=== PATIENT | male | born 1945 | race Caucasian/White ===

== ENCOUNTER → 2016-09-24 | Outpatient (CLI) | payer MEDICARE, BC, OTHER ==
[2016-09-24 08:02] LABS: BASO # 0.1 K/mm3 (0.0-0.2); BASO % 0.6 % (0.0-1.0); EOS # 0.2 K/mm3 (0.0-0.50); EOS % 2.8 % (0.0-3.0); LYMPH # 1.5 K/mm3 (1.5-4.5); LYMPH % 16.7 % (24.0-44.0); MEAN CORPUSCULAR HEMOGLOBIN 31.5 pg (27.0-33.0); MEAN CORPUSCULAR HGB CONC 33.7 g/dl (32.0-36.5); MEAN CORPUSCULAR VOLUME 93.4 fl (80.0-96.0); MONO # 0.7 K/mm3 (0.0-0.8); MONO % 7.8 % (0.0-5.0); NEUTROPHILS # 6.1 K/mm3 (1.8-7.7); NEUTROPHILS % 70.2 % (36.0-66.0); RED CELL DISTRIBUTION WIDTH 13.3 % (11.5-14.5); WHITE BLOOD COUNT 8.7 K/mm3 (4.0-10.0)
[2016-09-24 08:32] LABS: ALBUMIN 3.6 GM/DL (3.2-5.2); ALBUMIN/GLOBULIN RATIO 1.13 (1.00-1.93); ALKALINE PHOSPHATASE 104 U/L (45-117); ALT/SGPT 18 U/L (12-78); ANION GAP 7 MEQ/L (8-16); AST/SGOT 17 U/L (15-37); BILIRUBIN,TOTAL 0.5 MG/DL (0.2-1.0); BLOOD UREA NITROGEN 15 MG/DL (7-18); CALCIUM LEVEL 8.7 MG/DL (8.8-10.2); CARBON DIOXIDE LEVEL 30 MEQ/L (21-32); CHLORIDE LEVEL 103 MEQ/L (98-107); CHOLESTEROL LEVEL 129 MG/DL (<200); CREATININE FOR GFR 1.02 MG/DL (0.70-1.30); GLOMERULAR FILTRATION RATE > 60.0 (>42); GLUCOSE, FASTING 103 MG/DL (83-110); SODIUM LEVEL 140 MEQ/L (136-145); TOTAL PROTEIN 6.8 GM/DL (6.4-8.2); TRIGLYCERIDES LEVEL 71 MG/DL (<150)
== END ==
LOC: M LAB 07:30
PROVIDERS: ATTEND Internal Medicine Interventional Cardiology
DX: I10 Essential (primary) hypertension (principal)

== ENCOUNTER 2017-02-26 18:04 | Emergency (ER) | payer MEDICARE, BC, OTHER ==
[~2017-02-26] VITALS: Ht 185.4 cm; Wt 88.6 kg
[2017-02-26] MEDS ORDERED: LOSARTAN/HCT (18:16)
[2017-02-26] MEDS ORDERED: MULT1TAB10 PO (18:16)
[2017-02-26] MEDS ORDERED: LANS30CA (18:16)
[2017-02-26] MEDS ORDERED: NIFE60TA6 (18:16)
[2017-02-26] MEDS ORDERED: ATOR1TAB21 (18:16)
[2017-02-26] MEDS ORDERED: NITR0.4D TD (18:18)
[2017-02-26] MEDS ORDERED: ZOLP10TA2 PO (18:18)
[2017-02-26] MEDS ORDERED: CO Q10CA PO (18:18)
[2017-02-26] MEDS ORDERED: ASPI81TA21 PO (18:18)
[2017-02-26] MEDS ORDERED: NS 1,000 ML IV SCH (18:37)
[2017-02-26] MEDS ORDERED: PANTOPRAZOLE 40MG INJ (PROTONIX) (C9113) IV ONE (18:45)
[2017-02-26] MEDS ORDERED: ONDANSETRON 4MG/2ML VIAL (J2405) IV ONE (18:45)
[2017-02-26] MEDS ORDERED: GI COCKTAIL 50ML BTL(HYOSCYAMINE/MAALOX/LIDOCAINE VISCOUS)(1:3:1) PO ONE (18:45)
[2017-02-26 18:55] LABS: BASO % 0.4 % (0.0-1.0); EOS # 0.1 10^3/uL (0.0-0.50); EOS % 0.8 % (0.0-3.0); IMMATURE GRANULOCYTE % 0.4 % (0-0); LYMPH # 0.9 10^3/uL (1.5-4.5); LYMPH % 8.2 % (24.0-44.0); MEAN CORPUSCULAR HEMOGLOBIN 30.6 pg (27.0-33.0); MEAN CORPUSCULAR HGB CONC 33.4 g/dl (32.0-36.5); MEAN CORPUSCULAR VOLUME 91.6 fl (80.0-96.0); MONO # 0.9 10^3/uL (0.0-0.8); MONO % 8.2 % (0.0-5.0); NEUTROPHILS # 9.1 10^3/uL (1.8-7.7); PLATELET COUNT, AUTOMATED 297 10^3/uL (150-450); RED CELL DISTRIBUTION WIDTH 13.2 % (11.5-14.5)
[2017-02-26 19:25] LABS: ALBUMIN 3.5 GM/DL (3.2-5.2); ALKALINE PHOSPHATASE 97 U/L (45-117); ALT/SGPT 17 U/L (12-78); AMYLASE 71 U/L (25-115); ANION GAP 5 MEQ/L (8-16); AST/SGOT 18 U/L (7-37); BILIRUBIN,DIRECT < 0.1 MG/DL (0.0-0.2); BILIRUBIN,TOTAL 0.4 MG/DL (0.2-1.0); BLOOD UREA NITROGEN 15 MG/DL (7-18); CALCIUM LEVEL 8.8 MG/DL (8.8-10.2); CARBON DIOXIDE LEVEL 30 MEQ/L (21-32); CHLORIDE LEVEL 104 MEQ/L (98-107); CREATININE FOR GFR 0.97 MG/DL (0.70-1.30); GLOMERULAR FILTRATION RATE > 60.0 (>42); GLUCOSE, FASTING 93 MG/DL (83-110); POTASSIUM SERUM 3.9 MEQ/L (3.5-5.1); SODIUM LEVEL 139 MEQ/L (136-145); TOTAL PROTEIN 7.4 GM/DL (6.4-8.2)
[2017-02-26 19:43] VITALS: BP 120/67
[2017-02-26] MEDS ORDERED: PROT1TAB2 PO (19:46)
--- NOTE | 2017-02-26 20:36 | REP ---
ACUTE ABDOMINAL SERIES: 02/26/2017. Comparison: Chest x-ray 02/13/2012. Clinical history: Abdominal pain. Findings: PA chest: Sternotomy wires and clips in the mediastinum, unchanged. No cardiomegaly or vascular redistribution. No effusion or acute infiltrate. Pulmonary arteries are prominent centrally suggesting some pulmonary artery hypertension. No dense consolidation or parenchymal mass. No free air under the diaphragm. Aorta and airway intact. Flat and upright abdomen: Gas pattern is nonspecific with small amounts of stool and gas scattered in the colon. No dilated loops, air-fluid levels, masses or free air. No abnormal calcification. Bones grossly intact with minor degenerative changes lower lumbar facets and discs. Impression: 1. Nonspecific gas pattern without obstruction, mass or free air. No air-fluid levels, abnormal calcifications, masses or bony findings. 2. PA chest without acute finding. There is some underlying fibrosis, COPD and pulmonary artery hypertension in a patient with a prior sternotomy. Signed by Emmanuel Devine MD 02/26/2017 08:49 P
--- NOTE | 2017-02-28 12:17 | ECGEPIP ---
Stationary ECG Study 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
== END 2017-02-26 19:59 | disposition home or self-care (01) ==
LOC: M ED 18:04
DX: K29.70 Gastritis, unspecified, without bleeding (principal); I10 Essential (primary) hypertension; E78.5 Hyperlipidemia, unspecified; K21.9 Gastro-esophageal reflux disease without esophagitis; Z95.1 Presence of aortocoronary bypass graft; Z79.899 Other long term (current) drug therapy; Z79.82 Long term (current) use of aspirin; Z88.0 Allergy status to penicillin; Z88.1 Allergy status to other antibiotic agents; Z88.8 Allergy status to other drugs, medicaments and biological substances; Z87.891 Personal history of nicotine dependence
CPT/HCPCS: 74022; 80048; 80076; 82150; 82550; 82553; 83690; 84484; 85025; 93005; 93041; 96374; 96375; 99284; C9113; J2405

== ENCOUNTER 2017-03-14 09:22 | Emergency (ER) | payer MEDICARE, BC, OTHER ==
[~2017-03-14] VITALS: Ht 185.4 cm; Wt 88.6 kg
[~2017-03-14 09:22] MED LIST: ASPI81TA21 PO; ATOR1TAB21; CO Q10CA PO; LANS30CA; LOSARTAN/HCT; MULT1TAB10 PO; NIFE60TA6; NITR0.4D TD; PROT1TAB2 PO; ZOLP10TA2 PO
[2017-03-14] MEDS ORDERED: PROT1TAB2 PO (09:36)
[2017-03-14] MEDS ORDERED: COLA100C5 PO (09:36)
[2017-03-14] MEDS ORDERED: SULF1TAB72 PO (09:36)
[2017-03-14] MEDS ORDERED: NS 500 ML IV ONE (10:00)
[2017-03-14 10:06] LABS: BASO % 0.5 % (0.0-1.0); EOS # 0.4 10^3/uL (0.0-0.50); EOS % 4.6 % (0.0-3.0); IMMATURE GRANULOCYTE % 0.4 % (0-0); LYMPH # 1.3 10^3/uL (1.5-4.5); LYMPH % 14.7 % (24.0-44.0); MEAN CORPUSCULAR HEMOGLOBIN 30.8 pg (27.0-33.0); MEAN CORPUSCULAR HGB CONC 33.2 g/dl (32.0-36.5); MEAN CORPUSCULAR VOLUME 92.7 fl (80.0-96.0); MONO # 1.1 10^3/uL (0.0-0.8); MONO % 12.6 % (0.0-5.0); NEUTROPHILS # 5.8 10^3/uL (1.8-7.7); NEUTROPHILS % 67.2 % (36.0-66.0); PLATELET COUNT, AUTOMATED 362 10^3/uL (150-450); RED CELL DISTRIBUTION WIDTH 13.5 % (11.5-14.5); WHITE BLOOD COUNT 8.6 10^3/uL (4.0-10.0)
[2017-03-14 10:12] LABS: ANION GAP 6 MEQ/L (8-16); BLOOD UREA NITROGEN 17 MG/DL (7-18); CALCIUM LEVEL 8.7 MG/DL (8.8-10.2); CARBON DIOXIDE LEVEL 30 MEQ/L (21-32); CHLORIDE LEVEL 101 MEQ/L (98-107); CREATININE FOR GFR 1.28 MG/DL (0.70-1.30); GLOMERULAR FILTRATION RATE 58.8 (>42); GLUCOSE, FASTING 122 MG/DL (83-110); POTASSIUM SERUM 3.9 MEQ/L (3.5-5.1); SODIUM LEVEL 137 MEQ/L (136-145)
--- NOTE | 2017-03-14 11:29 | REP ---
Clinical: Chest pain and dizziness . Comparison: 02/26/2017 . Technique: PA and lateral. Findings: The mediastinum and cardiac silhouette are normal/stable. Evidence for prior sternotomy and CABG noted. . The lung gonzalez demonstrate stable chronic changes without acute consolidation, effusion, or pneumothorax. The skeletal structures are intact and normal. Impression: 1. No acute cardiopulmonary process. Signed by Heber Rm MD 03/14/2017 11:20 A
[2017-03-14 12:19] VITALS: BP 121/58
--- NOTE | 2017-03-14 15:01 | ECGEPIP ---
Stationary ECG Study [facility] - ED Test Date: 2017-03-14 Pat Name: RODOLFO SEGOVIA Department: Room: - Gender: M Restaurant Manager: sb : 1945 Requested By: ANDREWS RYAN Order Number: [id number] Reading MD: Diamond Collazo Measurements Intervals [place] Rate: 55 P: 30 [place]: 155 QRS: 56 QRSD: 102 T: 74 QT: 428 QTc: 411 Interpretive Statements SINUS BRADYCARDIA NONSPECIFIC T-WAVE ABNORMALITY DECREASED RATE 02/26/17 Electronically Signed On 03-14-2017 15:01:10 EST by Diamond Collazo
== END 2017-03-14 12:26 | disposition home or self-care (01) ==
LOC: EDBD 09:22 → M ED 09:22
DX: R55 Syncope and collapse (principal); I25.10 Atherosclerotic heart disease of native coronary artery without angina pectoris; I10 Essential (primary) hypertension; E78.5 Hyperlipidemia, unspecified; Z79.2 Long term (current) use of antibiotics; Z79.899 Other long term (current) drug therapy; Z88.8 Allergy status to other drugs, medicaments and biological substances; Z88.0 Allergy status to penicillin; Z88.1 Allergy status to other antibiotic agents; Z95.1 Presence of aortocoronary bypass graft; Z98.890 Other specified postprocedural states; Z87.891 Personal history of nicotine dependence

== ENCOUNTER 2017-06-04 00:58 | Emergency (ER) | payer OTHER, MEDICARE, BC ==
[2017-06-04] MEDS: FLUORESCEIN OPHTH 1 MG STRIP OD (05:28)
[2017-06-04] MEDS: TETRACAINE 0.5% OPHTH SOLN 4ML OD (05:28)
[2017-06-04] MEDS ORDERED: ERYTHROMYCIN OPHTH OINT OD (06:30)
== END 2017-06-04 06:44 | disposition home or self-care (01) ==
LOC: M ED 00:58
DX: S05.01XA Injury of conjunctiva and corneal abrasion without foreign body, right eye, initial encounter (principal); X58.XXXA Exposure to other specified factors, initial encounter; Y92.89 Other specified places as the place of occurrence of the external cause; Z79.899 Other long term (current) drug therapy; Z79.82 Long term (current) use of aspirin; Z88.0 Allergy status to penicillin; Z88.1 Allergy status to other antibiotic agents; Z88.8 Allergy status to other drugs, medicaments and biological substances
CPT/HCPCS: 99283

== ENCOUNTER → 2017-06-05 | Outpatient (CLI) | payer MEDICARE, BC, OTHER ==
[2017-06-05 13:55] LABS: CREATININE FOR GFR 1.07 MG/DL (0.70-1.30); GLOMERULAR FILTRATION RATE > 60.0 (>42)
[2017-06-05 13:55] LABS: BLOOD UREA NITROGEN 13 MG/DL (7-18)
== END ==
LOC: M LAB 12:34
DX: R10.9 Unspecified abdominal pain (principal)
CPT/HCPCS: 82565

== ENCOUNTER → 2017-06-11 | Outpatient (CLI) | payer MEDICARE, BC, OTHER ==
[~2017-06-11] MED LIST changes: -ASPI81TA21 PO; -ATOR1TAB21; -CO Q10CA PO; +GASTROGRAFIN SOLUTION 30ML (Q9963) As Ordered; -LANS30CA; -LOSARTAN/HCT; -MULT1TAB10 PO; -NIFE60TA6; -NITR0.4D TD; -PROT1TAB2 PO; -ZOLP10TA2 PO
== END ==
LOC: M RAD 08:09
DX: R10.9 Unspecified abdominal pain (principal); K59.00 Constipation, unspecified; K76.89 Other specified diseases of liver
CPT/HCPCS: Q9963

== ENCOUNTER 2017-06-18 09:04 | Day surgery (SDC) | payer MEDICARE, BC, OTHER ==
[~2017-06-18 09:04] MED LIST changes: -GASTROGRAFIN SOLUTION 30ML (Q9963) As Ordered; +NS 1,000 ML IV
[2017-06-18] MEDS ORDERED: PROPOFOL 200 MG/20 ML VIAL As Ordered (10:18)
[2017-06-18] MEDS ORDERED: LIDOCAINE 2% INJ 100 MG/5 ML SDV (FOR ANES.) As Ordered (10:19)
== END 2017-06-18 11:12 | disposition home or self-care (01) ==
LOC: M OPP 09:04
DX: R10.84 Generalized abdominal pain (principal); K59.00 Constipation, unspecified; K40.20 Bilateral inguinal hernia, without obstruction or gangrene, not specified as recurrent; K57.30 Diverticulosis of large intestine without perforation or abscess without bleeding; I10 Essential (primary) hypertension; E78.5 Hyperlipidemia, unspecified; R06.83 Snoring; I25.10 Atherosclerotic heart disease of native coronary artery without angina pectoris; Z95.5 Presence of coronary angioplasty implant and graft; Z95.1 Presence of aortocoronary bypass graft; J45.909 Unspecified asthma, uncomplicated; Z87.891 Personal history of nicotine dependence; Z88.8 Allergy status to other drugs, medicaments and biological substances; Z88.1 Allergy status to other antibiotic agents; Z91.041 Radiographic dye allergy status; Z88.0 Allergy status to penicillin; Z79.82 Long term (current) use of aspirin; Z79.899 Other long term (current) drug therapy; Z80.1 Family history of malignant neoplasm of trachea, bronchus and lung; Z80.3 Family history of malignant neoplasm of breast
CPT/HCPCS: 45378

== ENCOUNTER → 2017-09-18 | Outpatient (CLI) | payer MEDICARE, BC, OTHER ==
[2017-09-18 08:44] LABS: BASO % 0.5 % (0.0-1.0); EOS # 0.3 10^3/uL (0.0-0.50); HEMATOCRIT 41.8 % (42.0-52.0); HEMOGLOBIN 14.1 g/dl (13.5-17.5); IMMATURE GRANULOCYTE % 0.5 % (0-3.0); LYMPH # 1.3 10^3/uL (1.5-4.5); LYMPH % 15.7 % (24.0-44.0); MEAN CORPUSCULAR HEMOGLOBIN 31.4 pg (27.0-33.0); MEAN CORPUSCULAR HGB CONC 33.7 g/dl (32.0-36.5); MEAN CORPUSCULAR VOLUME 93.1 fl (80.0-96.0); MONO # 0.8 10^3/uL (0.0-0.8); MONO % 10.2 % (0.0-5.0); NEUTROPHILS # 5.7 10^3/uL (1.8-7.7); NEUTROPHILS % 69.1 % (36.0-66.0); PLATELET COUNT, AUTOMATED 262 10^3/uL (150-450); RED BLOOD COUNT 4.49 10^6/uL (4.30-6.10); RED CELL DISTRIBUTION WIDTH 13.1 % (11.5-14.5); WHITE BLOOD COUNT 8.2 10^3/uL (4.0-10.0)
[2017-09-18 09:12] LABS: ALBUMIN 3.3 GM/DL (3.2-5.2); ALBUMIN/GLOBULIN RATIO 0.94 (1.00-1.93); ALKALINE PHOSPHATASE 87 U/L (45-117); ALT/SGPT 19 U/L (12-78); ANION GAP 6 MEQ/L (8-16); AST/SGOT 15 U/L (7-37); BILIRUBIN,TOTAL 0.4 MG/DL (0.2-1.0); BLOOD UREA NITROGEN 13 MG/DL (7-18); CALCIUM LEVEL 8.5 MG/DL (8.8-10.2); CARBON DIOXIDE LEVEL 31 MEQ/L (21-32); CHLORIDE LEVEL 107 MEQ/L (98-107); CHOLESTEROL LEVEL 125 MG/DL (<200); CREATININE FOR GFR 0.94 MG/DL (0.70-1.30); FREE T4 0.93 NG/DL (0.76-1.46); GLOMERULAR FILTRATION RATE > 60.0 (>42); GLUCOSE, FASTING 101 MG/DL (70-100); HDL CHOLESTEROL 44 MG/DL (>40); LDH LACTATE DEHYDROGENASE 131 U/L (87-241); LDL CHOLESTEROL 68.8 MG/DL (<100); NON-HDL-C 81 MG/DL; PHOSPHORUS LEVEL 2.6 MG/DL (2.5-4.9); POTASSIUM SERUM 4.5 MEQ/L (3.5-5.1); SODIUM LEVEL 144 MEQ/L (136-145); TOTAL PROTEIN 6.8 GM/DL (6.4-8.2); TRIGLYCERIDES LEVEL 61 MG/DL (<150); URIC ACID 4.5 MG/DL (3.5-7.2)
== END ==
LOC: M LAB 08:15
DX: I25.10 Atherosclerotic heart disease of native coronary artery without angina pectoris (principal); E78.2 Mixed hyperlipidemia
CPT/HCPCS: 83615

== ENCOUNTER → 2018-09-28 | Outpatient (CLI) | payer MEDICARE, BC, OTHER ==
[~2018-09-28] MED LIST changes: +ASPI81TA21 PO; +ATOR1TAB21; +CO Q10CA PO; +COLA100C5 PO; +ERYTOIN8 OD; +LANS30CA; +LOSARTAN/HCT; +MULT1TAB10 PO; +NIFE60TA6; +NITR0.4D10 TD; -NS 1,000 ML IV; +PROT1TAB2 PO; +SULF1TAB72 PO; +ZOLP10TA2 PO
[2018-09-28 08:01] LABS: BASO % 0.5 % (0.0-1.0); EOS # 0.2 10^3/uL (0.0-0.50); EOS % 2.6 % (0.0-3.0); HEMATOCRIT 43.2 % (42.0-52.0); HEMOGLOBIN 14.2 g/dl (13.5-17.5); LYMPH # 1.4 10^3/uL (1.5-4.5); LYMPH % 16.3 % (24.0-44.0); MEAN CORPUSCULAR HEMOGLOBIN 30.5 pg (27.0-33.0); MEAN CORPUSCULAR HGB CONC 32.9 g/dl (32.0-36.5); MEAN CORPUSCULAR VOLUME 92.7 fl (80.0-96.0); MONO # 0.9 10^3/uL (0.0-0.8); MONO % 10.7 % (0.0-5.0); NEUTROPHILS # 5.9 10^3/uL (1.8-7.7); NEUTROPHILS % 69.5 % (36.0-66.0); PLATELET COUNT, AUTOMATED 280 10^3/uL (150-450); RED BLOOD COUNT 4.66 10^6/uL (4.30-6.10); WHITE BLOOD COUNT 8.5 10^3/uL (4.0-10.0)
[2018-09-28 08:36] LABS: ALBUMIN 3.6 GM/DL (3.2-5.2); ALT/SGPT 19 U/L (12-78); BILIRUBIN,TOTAL 0.4 MG/DL (0.2-1.0); BLOOD UREA NITROGEN 17 MG/DL (7-18); CARBON DIOXIDE LEVEL 32 MEQ/L (21-32); CHLORIDE LEVEL 112 MEQ/L (98-107); CHOLESTEROL LEVEL 123 MG/DL (<200); CREATININE FOR GFR 1.12 MG/DL (0.70-1.30); FREE T4 0.98 NG/DL (0.76-1.46); GLOMERULAR FILTRATION RATE > 60.0 (>42); GLUCOSE, FASTING 100 MG/DL (70-100); HDL CHOLESTEROL 43 MG/DL (>40); LDH LACTATE DEHYDROGENASE 143 U/L (87-241); LDL CHOLESTEROL 68 MG/DL (<100); NON-HDL-C 80 MG/DL; PHOSPHORUS LEVEL 3.3 MG/DL (2.5-4.9); POTASSIUM SERUM 4.1 MEQ/L (3.5-5.1); SODIUM LEVEL 132 MEQ/L (136-145); TOTAL PROTEIN 7.2 GM/DL (6.4-8.2); TRIGLYCERIDES LEVEL 59 MG/DL (<150); URIC ACID 5.3 MG/DL (3.5-7.2)
== END ==
LOC: M LAB 07:18
PROVIDERS: ATTEND Internal Medicine Interventional Cardiology
DX: I25.10 Atherosclerotic heart disease of native coronary artery without angina pectoris (principal); I11.9 Hypertensive heart disease without heart failure; E78.5 Hyperlipidemia, unspecified; Z13.1 Encounter for screening for diabetes mellitus

== ENCOUNTER → 2018-09-28 | Outpatient (CLI) | payer MEDICARE, BC, OTHER ==
[2018-09-28 08:01] LABS: HEMOGLOBIN 14.3 g/dl (13.5-17.5)
[2018-09-28 08:28] LABS: HEMOGLOBIN A1c 6.2 %
== END ==
LOC: M LAB 07:12
PROVIDERS: ATTEND Family Medicine
DX: Z13.1 Encounter for screening for diabetes mellitus (principal)

== ENCOUNTER → 2019-02-22 | Outpatient (REF) | payer MEDICARE, BC, OTHER ==
[2019-02-22 15:58] LABS: INFLUENZA A AMPLIFICATION NEGATIVE (NEGATIVE); INFLUENZA B AMPLIFICATION NEGATIVE (NEGATIVE)
== END ==
LOC: M LAB REF 15:20
PROVIDERS: ATTEND Physician Assistant Medical
DX: J11.1 Influenza due to unidentified influenza virus with other respiratory manifestations (principal)

== ENCOUNTER → 2019-10-25 | Outpatient (CLI) | payer MEDICARE, BC, OTHER ==
[~2019-10-25] MED LIST changes: +METO1TAB7; +NIFE1TAB51; -NIFE60TA6; -SULF1TAB72 PO; +SULF400T14 PO
[2019-11-21 20:24] LABS: BASO # 0.1 10^3/uL (0.0-0.2); BASO % 0.6 % (0.0-1.0); EOS # 0.2 10^3/uL (0.0-0.5); EOS % 2.7 % (0.0-3.0); HEMATOCRIT 42.7 % (42.0-52.0); HEMOGLOBIN 13.8 g/dl (13.5-17.5); LYMPH # 1.5 10^3/uL (1.5-5.0); LYMPH % 18.5 % (24.0-44.0); MEAN CORPUSCULAR HEMOGLOBIN 30.6 pg (27.0-33.0); MEAN CORPUSCULAR HGB CONC 32.3 g/dl (32.0-36.5); MEAN CORPUSCULAR VOLUME 94.7 fl (80.0-96.0); MONO # 0.8 10^3/uL (0.0-0.8); MONO % 10.4 % (0.0-5.0); NEUTROPHILS # 5.5 10^3/uL (1.5-8.5); NEUTROPHILS % 67.3 % (36.0-66.0); PLATELET COUNT, AUTOMATED 336 10^3/uL (150-450); RED BLOOD COUNT 4.51 10^6/uL (4.30-6.10); WHITE BLOOD COUNT 8.1 10^3/uL (4.0-10.0)
[2019-12-08 13:06] LABS: GLUCOSE, FASTING 94 MG/DL (70-100)
[2019-12-08 13:07] LABS: ALT/SGPT 19 IU/L (0-32); BLOOD UREA NITROGEN 11 MG/DL (7-18); CALCIUM LEVEL 8.9 MG/DL (8.8-10.2); CARBON DIOXIDE LEVEL 33 mmol/L (20-29); CHLORIDE LEVEL 104 MEQ/L (98-107); CREATININE FOR GFR 1.06 MG/DL (0.70-1.30); GLOMERULAR FILTRATION RATE > 60.0 (>42); LDH LACTATE DEHYDROGENASE 151 U/L (87-241); PHOSPHORUS LEVEL 2.8 MG/DL (2.5-4.9); SODIUM LEVEL 139 MEQ/L (136-145)
[2019-12-08 13:08] LABS: ALBUMIN 3.6 GM/DL (3.2-5.2); BILIRUBIN,TOTAL 0.4 MG/DL (0.2-1.0); FREE T4 1.06 NG/DL (0.76-1.46); TOTAL PROTEIN 7.3 GM/DL (6.4-8.2); URIC ACID 5.7 MG/DL (3.5-7.2)
[2019-12-08 13:10] LABS: CHOLESTEROL LEVEL 132 MG/DL (<200); CHOLESTEROL RISK RATIO 3.473 (<5); HDL CHOLESTEROL 38 MG/DL (>40); NON-HDL-C 94 MG/DL; TRIGLYCERIDES LEVEL 85 MG/DL (<150)
== END ==
LOC: M LAB 06:45
PROVIDERS: ATTEND Internal Medicine Interventional Cardiology
DX: E78.5 Hyperlipidemia, unspecified (principal); I11.9 Hypertensive heart disease without heart failure; I47.2 Ventricular tachycardia

== ENCOUNTER 2019-12-19 07:32 | Emergency (ER) | payer MEDICARE, BC, OTHER ==
[~2019-12-19] VITALS: Ht 185.4 cm; Wt 90.9 kg
[~2019-12-19 07:32] MED LIST changes: -METO1TAB7
[2019-12-19] MEDS ORDERED: METO1TAB7 (07:45)
[2019-12-19 08:54] LABS: VENOUS BASE EXCESS 2.3 (-2.0-2.0); VENOUS HCO3 29.3 MEQ/L (23.0-27.0); VENOUS O2 SATURATION 79.9 % (60.0-80.0); VENOUS PARTIAL PRESSURE CO2 54.6 mmHg (38.0-50.0); VENOUS PARTIAL PRESSURE O2 47.7 mmHg (30.0-50.0); VENOUS PH 7.347 UNITS (7.330-7.430); VENOUS STANDARD HCO3 26.1 MEQ/L; VENOUS TOTAL CO2 30.9 MEQ/L (24.0-28.0)
--- NOTE | 2019-12-19 09:10 | REPVR ---
PROCEDURE INFORMATION: Exam: XR Chest, 2 Views Exam date and time: 12/19/2019 8:33 AM Age: 74 years old Clinical indication: Cough and dyspnea TECHNIQUE: Imaging protocol: XR of the chest Views: 2 views. COMPARISON: [place] - Chest, 2 view PA, Lat 03/14/2017 10:56:40 AM FINDINGS: Tubes, catheters and devices: ECG leads/contacts overlie and partially obscure the anatomy. Lungs: Bilateral pulmonary hyperinflation is redemonstrated. No pulmonary mass, consolidation, or edema. Pleural space: Stable small right apical pleural/parenchymal opacities compatible scarring. No pleural effusion. No pneumothorax. Heart/Mediastinum: Heart size is within normal limits. Status post coronary arterial bypass grafting. Bones/joints: Degenerative spine disease. Median sternotomy closure devices present. IMPRESSION: Bilateral pulmonary hyperinflation. Findings consistent with COPD. No pulmonary consolidation. Electronically signed by: Boyd Saul On 12/19/2019 09:10:15 AM
[2019-12-19 09:12] LABS: BASO # 0.1 10^3/uL (0.0-0.2); BASO % 0.5 % (0.0-1.0); EOS # 0.2 10^3/uL (0.0-0.5); EOS % 1.7 % (0.0-3.0); HEMATOCRIT 43.7 % (42.0-52.0); HEMOGLOBIN 14.2 g/dl (13.5-17.5); LYMPH # 1.4 10^3/uL (1.5-5.0); LYMPH % 13.4 % (24.0-44.0); MEAN CORPUSCULAR HEMOGLOBIN 30.7 pg (27.0-33.0); MEAN CORPUSCULAR HGB CONC 32.5 g/dl (32.0-36.5); MEAN CORPUSCULAR VOLUME 94.4 fl (80.0-96.0); MONO % 9.5 % (0.0-5.0); NEUTROPHILS # 7.6 10^3/uL (1.5-8.5); NEUTROPHILS % 73.6 % (36.0-66.0); PLATELET COUNT, AUTOMATED 317 10^3/uL (150-450); RED BLOOD COUNT 4.63 10^6/uL (4.30-6.10); WHITE BLOOD COUNT 10.3 10^3/uL (4.0-10.0)
[2019-12-19 09:18] VITALS: O2SAT 94
[2019-12-19 09:20] LABS: INR 0.98; PROTHROMBIN TIME 13.2 SECONDS (12.5-14.3)
[2019-12-19 09:27] LABS: ALBUMIN 3.4 GM/DL (3.2-5.2); BILIRUBIN,DIRECT 0.2 MG/DL (0.0-0.2); BILIRUBIN,TOTAL 0.4 MG/DL (0.2-1.0); PARTIAL THROMBOPLASTIN TIME 29.6 SECONDS (24.2-38.5); THYROID STIMULATING HORMONE 2.64 uIU/ML (0.358-3.740); THYROXINE (T4) 9.1 UG/DL (4.5-12.0); TOTAL PROTEIN 7.2 GM/DL (6.4-8.2)
[2019-12-19 11:23] LABS: D-DIMER QUANT 328.8 ng/ml (<500)
[2019-12-19 12:48] VITALS: BP 124/56
--- NOTE | 2019-12-20 09:00 | ECGEPIP ---
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
--- NOTE | 2019-12-20 09:02 | ECGEPIP ---
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
== END 2019-12-19 12:50 | disposition home or self-care (01) ==
LOC: M ED 07:32
DX: J44.1 Chronic obstructive pulmonary disease with (acute) exacerbation (principal); R94.31 Abnormal electrocardiogram [ECG] [EKG]; I25.10 Atherosclerotic heart disease of native coronary artery without angina pectoris; K21.9 Gastro-esophageal reflux disease without esophagitis; E78.5 Hyperlipidemia, unspecified; Z88.0 Allergy status to penicillin; Z88.1 Allergy status to other antibiotic agents; Z88.8 Allergy status to other drugs, medicaments and biological substances; Z79.899 Other long term (current) drug therapy

== ENCOUNTER → 2020-07-21 | Outpatient (CLI) | payer MEDICARE, BC, OTHER ==
[~2020-07-21] MED LIST changes: +ASPI81TA26 PO; +BENE1POW5 PO; +ESOM40CA35; +LOSA100T5; +METO1TAB7; +NITR0.4S14 SL; +ONE-1TAB PO; +SUCR1TAB56
== END ==
LOC: M LABSMTC 09:46
PROVIDERS: ATTEND Anesthesiology
DX: Z01.812 Encounter for preprocedural laboratory examination (principal); Z11.52 Encounter for screening for COVID-19

== ENCOUNTER 2020-07-26 07:46 | Day surgery (SDC) | payer MEDICARE, BC, OTHER ==
[~2020-07-26] VITALS: Ht 185.4 cm; Wt 89.1 kg
[~2020-07-26 07:46] MED LIST changes: +NS 1,000 ML IV ONE
[2020-07-26] MEDS ORDERED: propofoL 200 MG/20 ML VIAL As Ordered ONE (09:05)
[2020-07-26] MEDS ORDERED: fentaNYL 100 MCG/2 ML INJECTION (J3010) As Ordered ONE (09:05)
[2020-07-26] MEDS ORDERED: LIDOCAINE 2% MDV 20ML VIAL As Ordered ONE (09:05)
--- NOTE | 2020-07-26 09:27 | ROOR ---
Patient Name: Brijesh Harrison Procedure Date: 07/26/2020 9:12 AM Date of : 1945 Age: 74 Room: [facility] Gender: Male Note Status: Finalized Procedure: Upper GI endoscopy Indications: Suspected esophageal reflux Providers: Grover Almanza Jr, MD Referring MD: Tomy Gallegos Do Requesting Provider: Medicines: Propofol per Anesthesia Complications: No immediate complications. Procedure: Pre-Anesthesia Assessment: - Prior to the procedure, a History and Physical was performed, and patient medications and allergies were reviewed. The patient is competent. The risks and benefits of the procedure and the sedation options and risks were discussed with the patient. All questions were answered and informed consent was obtained. Patient identification and proposed procedure were verified by the physician and the nurse in the pre-procedure area and in the procedure room. Mental Status Examination: alert and oriented. Airway Examination: normal oropharyngeal airway and neck mobility. Respiratory Examination: clear to auscultation. CV Examination: normal. ASA Grade Assessment: II - A patient with mild systemic disease. After reviewing the risks and benefits, the patient was deemed in satisfactory condition to undergo the procedure. The anesthesia plan was to use moderate sedation / analgesia (conscious sedation). Immediately prior to administration of medications, the patient was re-assessed for adequacy to receive sedatives. The heart rate, respiratory rate, oxygen saturations, blood pressure, adequacy of pulmonary ventilation, and response to care were monitored throughout the procedure. The physical status of the patient was re-assessed after the procedure. The Endoscope was introduced through the mouth, and advanced to the second part of duodenum. The upper GI endoscopy was accomplished without difficulty. The patient tolerated the procedure well. Findings: The upper third of the esophagus, middle third of the esophagus and lower third of the esophagus were normal. The cardia, gastric fundus, gastric body, gastric antrum, prepyloric region of the stomach and pylorus were normal. The duodenal bulb, first portion of the duodenum and second portion of the duodenum were normal. Impression: - Normal upper third of esophagus, middle third of esophagus and lower third of esophagus. - Normal cardia, gastric fundus, gastric body, antrum, prepyloric region of the stomach and pylorus. - Normal duodenal bulb, first portion of the duodenum and second portion of the duodenum. - No specimens collected. Recommendation: - Discharge patient to home (ambulatory). - Return to my office in 1 day. Procedure Code(s): --- Professional --- 58661, Esophagogastroduodenoscopy, flexible, transoral; diagnostic, including collection of specimen(s) by brushing or washing, when performed (separate procedure) Diagnosis Code(s): --- Professional --- K21.9, Gastro-esophageal reflux disease without esophagitis CPT copyright 2019 [employer]. All rights reserved. The codes documented in this report are preliminary and upon ultrasound applications specialist review may be revised to meet current compliance requirements. Grover Almanza MD Grover Almanza Jr, MD 07/26/2020 9:26:28 AM Electronically signed by Grover Almanza Jr, MD Number of Addenda: 0 Note Initiated On: 07/26/2020 9:12 AM Estimated Blood Loss: Estimated blood loss: none.
[2020-07-26 09:45] VITALS: BP 147/66
== END 2020-07-26 09:58 | disposition home or self-care (01) ==
LOC: M OPP 07:46
PROVIDERS: ATTEND Surgery
DX: K21.9 Gastro-esophageal reflux disease without esophagitis (principal); K59.00 Constipation, unspecified; Z79.82 Long term (current) use of aspirin; Z79.899 Other long term (current) drug therapy; Z88.0 Allergy status to penicillin; Z88.1 Allergy status to other antibiotic agents; Z88.8 Allergy status to other drugs, medicaments and biological substances; Z91.041 Radiographic dye allergy status; Z95.5 Presence of coronary angioplasty implant and graft
CPT/HCPCS: 43235; J3010

== ENCOUNTER → 2020-10-31 | Outpatient (CLI) | payer MEDICARE, BC, OTHER ==
[~2020-10-31] MED LIST changes: -NS 1,000 ML IV ONE
[2020-10-31 08:43] LABS: BASO % 0.3 % (0.0-1.0); EOS # 0.4 10^3/uL (0.0-0.5); HEMATOCRIT 43.3 % (42.0-52.0); HEMOGLOBIN 13.7 g/dl (13.5-17.5); LYMPH # 1.5 10^3/uL (1.5-5.0); LYMPH % 17.3 % (24.0-44.0); MEAN CORPUSCULAR HEMOGLOBIN 30.2 pg (27.0-33.0); MEAN CORPUSCULAR HGB CONC 31.6 g/dl (32.0-36.5); MEAN CORPUSCULAR VOLUME 95.4 fl (80.0-96.0); MONO # 1.1 10^3/uL (0.0-0.8); MONO % 12.4 % (2.0-8.0); NEUTROPHILS # 5.7 10^3/uL (1.5-8.5); NEUTROPHILS % 65.7 % (36.0-66.0); PLATELET COUNT, AUTOMATED 283 10^3/uL (150-450); RED BLOOD COUNT 4.54 10^6/uL (4.30-6.10); WHITE BLOOD COUNT 8.7 10^3/uL (4.0-10.0)
[2020-10-31 09:18] LABS: ALBUMIN 3.5 GM/DL (3.2-5.2); ALT/SGPT 26 U/L (12-78); BILIRUBIN,DIRECT 0.2 MG/DL (0.0-0.2); BILIRUBIN,TOTAL 0.5 MG/DL (0.2-1.0); BLOOD UREA NITROGEN 18 MG/DL (7-18); CARBON DIOXIDE LEVEL 31 MEQ/L (21-32); CHLORIDE LEVEL 106 MEQ/L (98-107); CHOLESTEROL LEVEL 134 MG/DL (<200); CHOLESTEROL RISK RATIO 2.851 (<5); CREATININE FOR GFR 1.08 MG/DL (0.70-1.30); FREE T4 0.98 NG/DL (0.76-1.46); GLOMERULAR FILTRATION RATE > 60.0 (>42); GLUCOSE, FASTING 96 MG/DL (70-100); HDL CHOLESTEROL 47 MG/DL (>40); LDH LACTATE DEHYDROGENASE 154 U/L (87-241); LDL CHOLESTEROL 74 MG/DL (<100); NON-HDL-C 87 MG/DL; POTASSIUM SERUM 4.4 MEQ/L (3.5-5.1); SODIUM LEVEL 141 MEQ/L (136-145); TOTAL PROTEIN 7.2 GM/DL (6.4-8.2); TRIGLYCERIDES LEVEL 65 MG/DL (<150)
== END ==
LOC: M LAB 08:22
PROVIDERS: ATTEND Internal Medicine Interventional Cardiology
DX: E78.5 Hyperlipidemia, unspecified (principal); I25.110 Atherosclerotic heart disease of native coronary artery with unstable angina pectoris; I47.1 Supraventricular tachycardia

== ENCOUNTER → 2021-09-16 | Outpatient (CLI) | payer MEDICARE, BC, OTHER ==
[2021-09-16 08:37] LABS: BASO % 0.4 % (0.0-1.0); EOS # 0.3 10^3/uL (0.0-0.5); EOS % 3.5 % (0.0-3.0); HEMATOCRIT 40.1 % (42.0-52.0); HEMOGLOBIN 12.9 g/dl (13.5-17.5); LYMPH # 1.3 10^3/uL (1.5-5.0); LYMPH % 16.8 % (24.0-44.0); MEAN CORPUSCULAR HEMOGLOBIN 31.2 pg (27.0-33.0); MEAN CORPUSCULAR HGB CONC 32.2 g/dl (32.0-36.5); MEAN CORPUSCULAR VOLUME 97.1 fl (80.0-96.0); MONO # 0.8 10^3/uL (0.0-0.8); MONO % 10.8 % (2.0-8.0); NEUTROPHILS # 5.3 10^3/uL (1.5-8.5); NEUTROPHILS % 68.2 % (36.0-66.0); PLATELET COUNT, AUTOMATED 285 10^3/uL (150-450); RED BLOOD COUNT 4.13 10^6/uL (4.30-6.10); WHITE BLOOD COUNT 7.8 10^3/uL (4.0-10.0)
[2021-09-16 09:11] LABS: CALCIUM LEVEL 9.6 MG/DL (8.8-10.2); CHOLESTEROL RISK RATIO 3.307 (<5); CREATININE FOR GFR 1.44 MG/DL (0.70-1.30); GLOMERULAR FILTRATION RATE 50.6 (>42); POTASSIUM SERUM 4.5 MEQ/L (3.5-5.1)
== END ==
LOC: M LAB 08:01
PROVIDERS: ATTEND Internal Medicine Interventional Cardiology
DX: E78.5 Hyperlipidemia, unspecified (principal); I25.10 Atherosclerotic heart disease of native coronary artery without angina pectoris; I10 Essential (primary) hypertension

== ENCOUNTER 2021-12-10 02:06 | Inpatient (IN) | payer MEDICARE, BC, OTHER ==
[~2021-12-10] VITALS: Ht 185.4 cm; Wt 94.8 kg
[~2021-12-10 02:06] MED LIST changes: -ATOR1TAB21; +ATOR1TAB21 PO; -LOSA100T5; +LOSA100T5 PO; -METO1TAB7; +METO1TAB7 PO; -NIFE1TAB51; +NIFE1TAB51 PO
[2021-12-10] MEDS ORDERED: ONDANSETRON 4MG ORAL DISINTEGRATING TAB PO ONE (02:15)
[2021-12-10] MEDS ORDERED: GI COCKTAIL 50ML BTL(HYOSCYAMINE/MAALOX/LIDOCAINE VISCOUS)(1:3:1) PO ONE (02:15)
[2021-12-10 02:49] LABS: BASO % 0.2 % (0.0-1.0); EOS # 0.1 10^3/uL (0.0-0.5); EOS % 0.6 % (0.0-3.0); HEMATOCRIT 39.4 % (42.0-52.0); HEMOGLOBIN 13.4 g/dl (13.5-17.5); LYMPH # 1.1 10^3/uL (1.5-5.0); LYMPH % 6.3 % (24.0-44.0); MEAN CORPUSCULAR HEMOGLOBIN 31.7 pg (27.0-33.0); MEAN CORPUSCULAR VOLUME 93.1 fl (80.0-96.0); MONO # 1.3 10^3/uL (0.0-0.8); MONO % 7.7 % (2.0-8.0); NEUTROPHILS # 14.5 10^3/uL (1.5-8.5); NEUTROPHILS % 84.7 % (36.0-66.0); PLATELET COUNT, AUTOMATED 350 10^3/uL (150-450); RED BLOOD COUNT 4.23 10^6/uL (4.30-6.10); WHITE BLOOD COUNT 17.1 10^3/uL (4.0-10.0)
[2021-12-10 03:24] LABS: CK-MB VALUE MASS 1.8 NG/ML (<3.6); MB/CK RELATIVE INDEX 1.71 (< OR =4)
[2021-12-10 03:25] LABS: ALBUMIN 3.6 GM/DL (3.2-5.2); BILIRUBIN,DIRECT 0.2 MG/DL (0.0-0.2); BILIRUBIN,TOTAL 0.4 MG/DL (0.2-1.0); CALCIUM LEVEL 8.8 MG/DL (8.8-10.2); CREATININE FOR GFR 1.36 MG/DL (0.70-1.30); GLOMERULAR FILTRATION RATE 54.1 (>42); POTASSIUM SERUM 3.9 MEQ/L (3.5-5.1); TOTAL PROTEIN 7.3 GM/DL (6.4-8.2)
[2021-12-10] MEDS ORDERED: NS 1,000 ML IV ONE (05:25)
[2021-12-10] MEDS ORDERED: ESOM20CA25 PO (09:08)
[2021-12-10] MEDS ORDERED: HOME MED LIST COMPLETE! XX SCH (09:10)
[2021-12-10] MEDS ORDERED: ONDANSETRON 4MG 2ML VIAL IV PRN (11:05)
[2021-12-10] MEDS ORDERED: DEXTROSE 50% 50 ML SYRINGE IV PRN (11:05)
[2021-12-10] MEDS ORDERED: GLUCOSE 4GM CHEW TABLET PO PRN (11:05)
[2021-12-10] MEDS ORDERED: GLUCAGON INJ 1MG VIAL SC PRN (11:05)
[2021-12-10] MEDS ORDERED: INSULIN LISPRO (NovoLOG) PER UNIT SC SCH (12:00)
[2021-12-10] MEDS: NS 1,000 ML IV SCH ×2 (13:12→19:29)
[2021-12-10] MEDS: PANTOPRAZOLE 40MG VIAL IV SCH (13:20)
[2021-12-10 15:11] VITALS: BP 131/62
[2021-12-10] MEDS: HEPARIN SOD (PORCINE) 5000UNITS/ML 1ML VIAL/SYRINGE SC SCH ×2 (15:15→20:23)
[2021-12-10 16:00] VITALS: BP 137/64
[2021-12-10 17:00] VITALS: BP 134/60
[2021-12-10 18:00] VITALS: BP 130/60
[2021-12-10 19:00] VITALS: BP 125/58
[2021-12-10 20:00] VITALS: BP 125/57
[2021-12-11] VITALS (24 sets, daily range): BP systolic 103–137; BP diastolic 56–76; O2SAT 88–92
[2021-12-11] MEDS ORDERED: ALBUTEROL SULFATE 2.5 MG/0.5 ML INH NEB SOLN NEB PRN (03:55)
[2021-12-11 04:43] LABS: BASO % 0.2 % (0.0-1.0); EOS # 0.2 10^3/uL (0.0-0.5); EOS % 1.7 % (0.0-3.0); HEMATOCRIT 36.4 % (42.0-52.0); HEMOGLOBIN 11.8 g/dl (13.5-17.5); LYMPH # 1.2 10^3/uL (1.5-5.0); LYMPH % 12.2 % (24.0-44.0); MEAN CORPUSCULAR HEMOGLOBIN 31.3 pg (27.0-33.0); MEAN CORPUSCULAR HGB CONC 32.4 g/dl (32.0-36.5); MEAN CORPUSCULAR VOLUME 96.6 fl (80.0-96.0); MONO % 10.8 % (2.0-8.0); NEUTROPHILS % 74.5 % (36.0-66.0); PLATELET COUNT, AUTOMATED 256 10^3/uL (150-450); RED BLOOD COUNT 3.77 10^6/uL (4.30-6.10); WHITE BLOOD COUNT 9.4 10^3/uL (4.0-10.0)
[2021-12-11 05:01] LABS: BLOOD UREA NITROGEN 26 MG/DL (7-18); CALCIUM LEVEL 7.7 MG/DL (8.8-10.2); CARBON DIOXIDE LEVEL 27 MEQ/L (21-32); CHLORIDE LEVEL 108 MEQ/L (98-107); GLOMERULAR FILTRATION RATE > 60.0 (>42); GLUCOSE, FASTING 97 MG/DL (70-100); POTASSIUM SERUM 3.9 MEQ/L (3.5-5.1); SODIUM LEVEL 140 MEQ/L (136-145)
[2021-12-11] MEDS ORDERED: SODIUM CHLORIDE NASAL 0.65% SPRAY BTL (OCEAN) PRN (05:30)
[2021-12-11] MEDS: HEPARIN SOD (PORCINE) 5000UNITS/ML 1ML VIAL/SYRINGE SC SCH (06:40)
[2021-12-11] MEDS: METOPROLOL 5 MG/5 ML VIAL IV SCH ×3 (11:50→12:15)
[2021-12-11] MEDS: PANTOPRAZOLE 40MG VIAL IV SCH (12:14)
[2021-12-11] MEDS: ENOXAPARIN 100MG/1ML SYRINGE (J1650 PER 10MG) SC SCH ×2 (12:14→20:39)
[2021-12-11 13:10] LABS: CK-MB VALUE MASS 2.8 NG/ML (<3.6); MB/CK RELATIVE INDEX 0.86 (< OR =4)
[2021-12-11 15:21] LABS: CK-MB VALUE MASS 2.8 NG/ML (<3.6); MB/CK RELATIVE INDEX 1.01 (< OR =4)
[2021-12-11] MEDS: FLUTICASONE PROP 0.05% NASAL SPRAY 16 GM (FLONASE) NARES SCH ×2 (15:22→20:39)
[2021-12-11] MEDS: METOPROLOL SUCC (TopROL XL) 50MG **XL** TAB PO SCH (15:24)
[2021-12-11] MEDS: NIFEdipine 30 MG XL TAB PO SCH (15:25)
[2021-12-12] VITALS: BP 108/55
[2021-12-12 04:00] VITALS: BP 125/58
[2021-12-12 05:52] LABS: BASO % 0.3 % (0.0-1.0); EOS # 0.2 10^3/uL (0.0-0.5); EOS % 1.8 % (0.0-3.0); HEMATOCRIT 34.6 % (42.0-52.0); HEMOGLOBIN 11.5 g/dl (13.5-17.5); LYMPH # 1.3 10^3/uL (1.5-5.0); LYMPH % 11.8 % (24.0-44.0); MEAN CORPUSCULAR HGB CONC 33.2 g/dl (32.0-36.5); MEAN CORPUSCULAR VOLUME 96.4 fl (80.0-96.0); MONO % 9.6 % (2.0-8.0); NEUTROPHILS # 8.2 10^3/uL (1.5-8.5); NEUTROPHILS % 75.7 % (36.0-66.0); PLATELET COUNT, AUTOMATED 245 10^3/uL (150-450); RED BLOOD COUNT 3.59 10^6/uL (4.30-6.10); WHITE BLOOD COUNT 10.8 10^3/uL (4.0-10.0)
[2021-12-12 06:08] LABS: BLOOD UREA NITROGEN 23 MG/DL (7-18); CALCIUM LEVEL 8.1 MG/DL (8.8-10.2); CARBON DIOXIDE LEVEL 28 MEQ/L (21-32); CHLORIDE LEVEL 108 MEQ/L (98-107); CREATININE FOR GFR 1.02 MG/DL (0.70-1.30); GLOMERULAR FILTRATION RATE > 60.0 (>42); GLUCOSE, FASTING 96 MG/DL (70-100); POTASSIUM SERUM 3.6 MEQ/L (3.5-5.1); SODIUM LEVEL 139 MEQ/L (136-145)
[2021-12-12 08:00] VITALS: BP 130/59
[2021-12-12 08:59] VITALS: BP 130/59
[2021-12-12] MEDS: METOPROLOL SUCC (TopROL XL) 50MG **XL** TAB PO SCH (08:59)
[2021-12-12] MEDS: FLUTICASONE PROP 0.05% NASAL SPRAY 16 GM (FLONASE) NARES SCH (08:59)
[2021-12-12] MEDS ORDERED: ELIQ5TAB PO (08:59)
[2021-12-12] MEDS: NIFEdipine 30 MG XL TAB PO SCH (08:59)
[2021-12-12] MEDS ORDERED: APIXABAN 5 MG TAB (ELIQUIS) PO SCH (09:00)
== END 2021-12-12 13:20 | disposition home or self-care (01) | DRG 388 ==
LOC: M ED 02:06 → EDBD 02:06 → M ED INP 10:11 → ENRESERV 12:54 → M ICU 14:56
PROVIDERS: ADMIT Internal Medicine; ATTEND Internal Medicine
DX: K56.609 Unspecified intestinal obstruction, unspecified as to partial versus complete obstruction (principal); U07.1 COVID-19; I25.10 Atherosclerotic heart disease of native coronary artery without angina pectoris; I10 Essential (primary) hypertension; E78.5 Hyperlipidemia, unspecified; J44.9 Chronic obstructive pulmonary disease, unspecified; J45.909 Unspecified asthma, uncomplicated; K21.9 Gastro-esophageal reflux disease without esophagitis; I48.91 Unspecified atrial fibrillation; R91.8 Other nonspecific abnormal finding of lung field; G47.33 Obstructive sleep apnea (adult) (pediatric); D72.829 Elevated white blood cell count, unspecified; Z79.82 Long term (current) use of aspirin; Z79.899 Other long term (current) drug therapy; Z87.891 Personal history of nicotine dependence; Z88.0 Allergy status to penicillin; Z88.1 Allergy status to other antibiotic agents; Z88.8 Allergy status to other drugs, medicaments and biological substances; Z91.041 Radiographic dye allergy status; Z95.5 Presence of coronary angioplasty implant and graft

== ENCOUNTER 2021-12-13 08:09 | Emergency (ER) | payer MEDICARE, BC, OTHER ==
[~2021-12-13] VITALS: Ht 185.4 cm; Wt 90.9 kg
[~2021-12-13 08:09] MED LIST changes: +ELIQ5TAB PO; +ESOM20CA25 PO
[2021-12-13] MEDS ORDERED: APIXABAN 5 MG TAB (ELIQUIS) PO ONE (08:30)
[2021-12-13] MEDS ORDERED: METOPROLOL SUCC (TopROL XL) 50MG **XL** TAB PO ONE (08:30)
[2021-12-13 08:41] VITALS: BP 139/66
[2021-12-13] MEDS: METOPROLOL 5 MG/5 ML VIAL IV SCH ×2 (08:42→12:13)
[2021-12-13 08:45] LABS: HEMATOCRIT 35.3 % (42.0-52.0); HEMOGLOBIN 11.9 g/dl (13.5-17.5); MEAN CORPUSCULAR HEMOGLOBIN 31.7 pg (27.0-33.0); MEAN CORPUSCULAR HGB CONC 33.7 g/dl (32.0-36.5); MEAN CORPUSCULAR VOLUME 94.1 fl (80.0-96.0); PLATELET COUNT, AUTOMATED 296 10^3/uL (150-450); RED BLOOD COUNT 3.75 10^6/uL (4.30-6.10); WHITE BLOOD COUNT 9.6 10^3/uL (4.0-10.0)
[2021-12-13 09:14] LABS: BLOOD UREA NITROGEN 22 MG/DL (7-18); CALCIUM LEVEL 8.2 MG/DL (8.8-10.2); CARBON DIOXIDE LEVEL 28 MEQ/L (21-32); CHLORIDE LEVEL 107 MEQ/L (98-107); CREATININE FOR GFR 0.93 MG/DL (0.70-1.30); GLOMERULAR FILTRATION RATE > 60.0 (>42); GLUCOSE, FASTING 111 MG/DL (70-100); POTASSIUM SERUM 3.2 MEQ/L (3.5-5.1); SODIUM LEVEL 138 MEQ/L (136-145)
[2021-12-13 12:00] VITALS: BP 122/62
== END 2021-12-13 12:17 | disposition home or self-care (01) ==
LOC: M ED 08:09 → EDBD 08:09 → M ED 12:17
DX: I48.0 Paroxysmal atrial fibrillation (principal); I25.2 Old myocardial infarction; I10 Essential (primary) hypertension; E78.5 Hyperlipidemia, unspecified; J44.9 Chronic obstructive pulmonary disease, unspecified; K21.9 Gastro-esophageal reflux disease without esophagitis; Z95.5 Presence of coronary angioplasty implant and graft; Z79.01 Long term (current) use of anticoagulants; Z79.899 Other long term (current) drug therapy; Z88.0 Allergy status to penicillin; Z88.8 Allergy status to other drugs, medicaments and biological substances

== ENCOUNTER 2021-12-16 12:12 | Inpatient (IN) | payer MEDICARE, BC, OTHER ==
[~2021-12-16] VITALS: Ht 185.4 cm; Wt 89.7 kg
[2021-12-16 14:51] LABS: BASO % 0.3 % (0.0-1.0); EOS # 0.1 10^3/uL (0.0-0.5); EOS % 0.9 % (0.0-3.0); HEMATOCRIT 35.3 % (42.0-52.0); HEMOGLOBIN 11.7 g/dl (13.5-17.5); LYMPH % 11.8 % (24.0-44.0); MEAN CORPUSCULAR HEMOGLOBIN 31.3 pg (27.0-33.0); MEAN CORPUSCULAR HGB CONC 33.1 g/dl (32.0-36.5); MEAN CORPUSCULAR VOLUME 94.4 fl (80.0-96.0); MONO # 1.1 10^3/uL (0.0-0.8); MONO % 12.4 % (2.0-8.0); NEUTROPHILS # 6.5 10^3/uL (1.5-8.5); NEUTROPHILS % 73.9 % (36.0-66.0); PLATELET COUNT, AUTOMATED 345 10^3/uL (150-450); RED BLOOD COUNT 3.74 10^6/uL (4.30-6.10); WHITE BLOOD COUNT 8.8 10^3/uL (4.0-10.0)
[2021-12-16 15:25] LABS: BLOOD UREA NITROGEN 14 MG/DL (7-18); CALCIUM LEVEL 8.9 MG/DL (8.8-10.2); CARBON DIOXIDE LEVEL 27 MEQ/L (21-32); CHLORIDE LEVEL 105 MEQ/L (98-107); CREATININE FOR GFR 0.95 MG/DL (0.70-1.30); GLOMERULAR FILTRATION RATE > 60.0 (>42); GLUCOSE, FASTING 94 MG/DL (70-100); POTASSIUM SERUM 4.4 MEQ/L (3.5-5.1); SODIUM LEVEL 139 MEQ/L (136-145)
[2021-12-16 15:34] LABS: CK-MB VALUE MASS 2.9 NG/ML (<3.6); MB/CK RELATIVE INDEX 2.21 (< OR =4)
[2021-12-16 15:53] LABS: NT-PRO BNP 3487 PG/ML (<450)
[2021-12-16] MEDS ORDERED: FUROSEMIDE 40MG/4ML VIAL (J1940) IV ONE (16:15)
[2021-12-16] MEDS ORDERED: HOME MED LIST COMPLETE! XX SCH (22:10)
[2021-12-16] MEDS ORDERED: ELIQ5TAB PO (22:10)
[2021-12-16] MEDS ORDERED: VITMTA PO (22:10)
[2021-12-17] VITALS (11 sets, daily range): BP systolic 121–197; BP diastolic 52–109
[2021-12-17] MEDS ORDERED: NITROGLYCERIN 0.4 MG SUBL TABLET SL PRN (01:10)
[2021-12-17] MEDS: APIXABAN 5 MG TAB (ELIQUIS) PO SCH ×3 (01:23→20:08)
[2021-12-17] MEDS: ATORVASTATIN 20 MG TAB PO SCH ×2 (01:23→17:42)
[2021-12-17] MEDS: DOCUSATE SODIUM 100MG CAPSULE PO SCH ×2 (01:23→20:08)
[2021-12-17] MEDS ORDERED: REMDESIVIR 200 MG in NS 250 ML IV ONE (03:00)
[2021-12-17] MEDS ORDERED: SODIUM CHLORIDE 0.9% INJ 10 ML SYR IV ONE (05:00)
[2021-12-17 05:54] LABS: HEMATOCRIT 33.8 % (42.0-52.0); HEMOGLOBIN 11.1 g/dl (13.5-17.5); MEAN CORPUSCULAR HEMOGLOBIN 31.4 pg (27.0-33.0); MEAN CORPUSCULAR HGB CONC 32.8 g/dl (32.0-36.5); MEAN CORPUSCULAR VOLUME 95.5 fl (80.0-96.0); PLATELET COUNT, AUTOMATED 339 10^3/uL (150-450); RED BLOOD COUNT 3.54 10^6/uL (4.30-6.10); WHITE BLOOD COUNT 8.6 10^3/uL (4.0-10.0)
[2021-12-17 06:25] LABS: BLOOD UREA NITROGEN 16 MG/DL (7-18); CALCIUM LEVEL 8.5 MG/DL (8.8-10.2); CARBON DIOXIDE LEVEL 28 MEQ/L (21-32); CHLORIDE LEVEL 108 MEQ/L (98-107); GLOMERULAR FILTRATION RATE > 60.0 (>42); GLUCOSE, FASTING 103 MG/DL (70-100); MAGNESIUM LEVEL 1.7 MG/DL (1.8-2.4); NT-PRO BNP 2795 PG/ML (<450); POTASSIUM SERUM 3.8 MEQ/L (3.5-5.1); SODIUM LEVEL 142 MEQ/L (136-145)
[2021-12-17] MEDS: PANTOPRAZOLE 40MG TAB (PROTONIX) PO SCH (08:38)
[2021-12-17] MEDS ORDERED: NIFEdipine 30 MG XL TAB PO SCH (09:00)
[2021-12-17] MEDS ORDERED: METOPROLOL SUCC (TopROL XL) 50MG **XL** TAB PO SCH (09:00)
[2021-12-17] MEDS ORDERED: FUROSEMIDE 40MG/4ML VIAL (J1940) IV SCH (09:00)
[2021-12-17] MEDS ORDERED: MAG SULF 1GM/100ML (MAG RUN) 1 GM in IV 1 EA IV ONE (09:00)
[2021-12-17] MEDS ORDERED: metOLazone 2.5 MG TAB PO ONE (10:00)
[2021-12-17] MEDS: FUROSEMIDE injection 250 MG in D5W 225 ML IV SCH (10:06)
[2021-12-17] MEDS ORDERED: NS 1,000 ML IV SCH (11:30)
[2021-12-17] MEDS ORDERED: EPINEPHrine INJ 1 MG/ML 1ML AMP IM PRN (11:30)
[2021-12-17] MEDS ORDERED: diphenhydrAMINE 50MG/ML VIAL (J1200) IV PRN (11:30)
[2021-12-17] MEDS ORDERED: ACETAMINOPHEN TAB 650MG DOSE (2X325MG) PO ONE (11:30)
[2021-12-17] MEDS ORDERED: methylPREDNISolone 125MG 2ML VIAL IV PRN (11:30)
[2021-12-17] MEDS ORDERED: diphenhydrAMINE 25MG CAP PO ONE (11:30)
[2021-12-17] MEDS ORDERED: ALBUTEROL 90 MCG/ACT 8GM HFA INHALER INH PRN (11:30)
[2021-12-17] MEDS ORDERED: methylPREDNISolone 125MG 2ML VIAL IV ONE (11:30)
[2021-12-17] MEDS ORDERED: ALBUTEROL SULFATE 2.5 MG/0.5 ML INH NEB SOLN INH PRN (11:30)
[2021-12-17] MEDS ORDERED: BEBTELOVIMAB 175MG 2ML VIAL (EUA) IV ONE (13:00)
[2021-12-17] MEDS ORDERED: REMDESIVIR 100 MG in NS 250 ML IV SCH (23:00)
[2021-12-18] MEDS ORDERED: SODIUM CHLORIDE 0.9% INJ 10 ML SYR IV SCH
[2021-12-18 04:00] VITALS: BP 142/66
[2021-12-18 08:00] VITALS: BP 157/68
[2021-12-18] MEDS: PANTOPRAZOLE 40MG TAB (PROTONIX) PO SCH (08:02)
[2021-12-18] MEDS: APIXABAN 5 MG TAB (ELIQUIS) PO SCH (08:02)
[2021-12-18 08:27] LABS: HEMATOCRIT 41.1 % (42.0-52.0); MEAN CORPUSCULAR HEMOGLOBIN 31.4 pg (27.0-33.0); MEAN CORPUSCULAR HGB CONC 33.3 g/dl (32.0-36.5); MEAN CORPUSCULAR VOLUME 94.1 fl (80.0-96.0); PLATELET COUNT, AUTOMATED 461 10^3/uL (150-450); RED BLOOD COUNT 4.37 10^6/uL (4.30-6.10); WHITE BLOOD COUNT 11.7 10^3/uL (4.0-10.0)
[2021-12-18] MEDS ORDERED: METO25TA PO (08:36)
[2021-12-18] MEDS ORDERED: LASI20TA3 PO (08:36)
[2021-12-18 08:40] LABS: HEMOGLOBIN 13.7 g/dl (13.5-17.5)
[2021-12-18 08:57] LABS: CK-MB VALUE MASS < 1.0 NG/ML (<3.6); CPK CREATINE PHOSPHOKINASE 57 U/L (39-308); MB/CK RELATIVE INDEX 1.75 (< OR =4)
[2021-12-18] MEDS ORDERED: NIFEdipine 30 MG XL TAB PO SCH (09:00)
[2021-12-18 09:15] LABS: ALBUMIN 3.4 GM/DL (3.2-5.2); BILIRUBIN,TOTAL 0.4 MG/DL (0.2-1.0); CALCIUM LEVEL 9.4 MG/DL (8.8-10.2); CHOLESTEROL RISK RATIO 2.95 (<5); CREATININE FOR GFR 1.35 MG/DL (0.70-1.30); GLOMERULAR FILTRATION RATE 54.6 (>42); MAGNESIUM LEVEL 1.9 MG/DL (1.8-2.4); POTASSIUM SERUM 3.4 MEQ/L (3.5-5.1); TOTAL PROTEIN 7.6 GM/DL (6.4-8.2)
[2021-12-18] MEDS: FUROSEMIDE injection 250 MG in D5W 225 ML IV SCH (10:00)
[2021-12-18 10:10] VITALS: BP 155/68
== END 2021-12-18 10:36 | disposition home health service (06) | DRG 177 ==
LOC: M ED 12:12 → M ED INP 16:53 → M ICU 12-17 05:37
PROVIDERS: ADMIT Internal Medicine; ATTEND General Practice
DX: U07.1 COVID-19 (principal); I50.33 Acute on chronic diastolic (congestive) heart failure; J44.9 Chronic obstructive pulmonary disease, unspecified; J45.909 Unspecified asthma, uncomplicated; I48.0 Paroxysmal atrial fibrillation; I25.10 Atherosclerotic heart disease of native coronary artery without angina pectoris; I11.0 Hypertensive heart disease with heart failure; K21.9 Gastro-esophageal reflux disease without esophagitis; E83.42 Hypomagnesemia; D63.8 Anemia in other chronic diseases classified elsewhere; Z87.891 Personal history of nicotine dependence; Z95.5 Presence of coronary angioplasty implant and graft; Z79.01 Long term (current) use of anticoagulants; Z79.899 Other long term (current) drug therapy; Z88.0 Allergy status to penicillin; Z88.1 Allergy status to other antibiotic agents; Z88.8 Allergy status to other drugs, medicaments and biological substances; Z91.041 Radiographic dye allergy status

== ENCOUNTER → 2022-05-02 | Outpatient (CLI) | payer MEDICARE, BC, OTHER ==
[~2022-05-02] MED LIST changes: +E-Z-GAS II EFFERVESCENT PACKET (SODIUM BICARB./CITRIC ACID/SIMETHICONE) As Ordered ONE; +E-Z-HD 98% w/w 340GM SUSP BTL As Ordered ONE; +E-Z-PAQUE 96% w/w SUSP 176GM BTL As Ordered ONE; +LASI20TA3 PO; +METO25TA PO; +VITMTA PO
== END ==
LOC: M RAD 08:50
PROVIDERS: ATTEND Surgery
DX: K21.9 Gastro-esophageal reflux disease without esophagitis (principal); R10.84 Generalized abdominal pain; K59.00 Constipation, unspecified

== ENCOUNTER → 2022-05-07 | Outpatient (REF) | payer MEDICARE, BC, OTHER ==
[~2022-05-07] MED LIST changes: -E-Z-GAS II EFFERVESCENT PACKET (SODIUM BICARB./CITRIC ACID/SIMETHICONE) As Ordered ONE; -E-Z-HD 98% w/w 340GM SUSP BTL As Ordered ONE; -E-Z-PAQUE 96% w/w SUSP 176GM BTL As Ordered ONE
[2022-05-07 16:33] LABS: HEMATOCRIT 38.9 % (42.0-52.0); HEMOGLOBIN 12.6 g/dl (13.5-17.5); MEAN CORPUSCULAR HEMOGLOBIN 31.2 pg (27.0-33.0); MEAN CORPUSCULAR HGB CONC 32.4 g/dl (32.0-36.5); MEAN CORPUSCULAR VOLUME 96.3 fl (80.0-96.0); PLATELET COUNT, AUTOMATED 438 10^3/uL (150-450); RED BLOOD COUNT 4.04 10^6/uL (4.30-6.10)
[2022-05-07 16:41] LABS: ERYTHROCYTE SEDIMENTATION RATE 88 mm/hr (0-20)
[2022-05-07 16:55] LABS: URIC ACID 5.5 MG/DL (3.7-9.2)
[2022-05-07 16:58] LABS: EOSINOPHILS 2 % (0-3); LYMPHOCYTES 4 % (16-44); MONOCYTES 10 % (0-5); NEUTROPHILS 82 % (28-66); TOXIC VACUOLATION 1+
[2022-05-07 16:59] LABS: PLATELET ESTIMATE NORMAL (NORMAL)
[2022-05-07 22:22] LABS: ALBUMIN 2.4 G/DL (3.2-5.2); BILIRUBIN,TOTAL 0.5 MG/DL (0.3-1.2); CALCIUM LEVEL 8.5 MG/DL (8.3-10.6); CREATININE FOR GFR 1.25 MG/DL (0.70-1.30); GLOMERULAR FILTRATION RATE 59.6 (>42); POTASSIUM SERUM 4.1 MMOL/L (3.5-5.1); TOTAL PROTEIN 6.4 G/DL (5.7-8.2)
== END ==
LOC: M LAB REF 16:09
PROVIDERS: ATTEND Physician Assistant
DX: B34.9 Viral infection, unspecified (principal)

== ENCOUNTER 2022-05-14 18:53 | Emergency (ER) | payer MEDICARE, BC, OTHER ==
[2022-05-14 19:45] LABS: C REACTIVE PROTEIN QUANTITATIV 29.2 MG/DL (<1.0); CALCIUM LEVEL 8.2 MG/DL (8.3-10.6); CREATININE FOR GFR 1.55 MG/DL (0.70-1.30); GLOMERULAR FILTRATION RATE 46.5 (>42); POTASSIUM SERUM 4.1 MMOL/L (3.5-5.1)
[2022-05-14 19:47] LABS: THYROID STIMULATING HORMONE 2.82 uIU/ML (0.55-4.78)
[2022-05-14] MEDS ORDERED: NS 500 ML IV ONE (21:55)
[2022-05-14 22:38] VITALS: BP 102/55
[2022-05-15 13:11] LABS: JAK2 MUTATIONS FOR PATH SENDOU See Pathology Report
== END 2022-05-14 22:51 | disposition home or self-care (01) ==
LOC: M ED 18:53
DX: D72.828 Other elevated white blood cell count (principal); J43.9 Emphysema, unspecified; K80.20 Calculus of gallbladder without cholecystitis without obstruction; K57.30 Diverticulosis of large intestine without perforation or abscess without bleeding; K76.0 Fatty (change of) liver, not elsewhere classified; I48.91 Unspecified atrial fibrillation; I25.10 Atherosclerotic heart disease of native coronary artery without angina pectoris; I50.9 Heart failure, unspecified; I10 Essential (primary) hypertension; J44.9 Chronic obstructive pulmonary disease, unspecified; K21.9 Gastro-esophageal reflux disease without esophagitis; B34.9 Viral infection, unspecified; Z95.1 Presence of aortocoronary bypass graft; Z95.5 Presence of coronary angioplasty implant and graft; Z79.01 Long term (current) use of anticoagulants; Z79.899 Other long term (current) drug therapy; Z88.0 Allergy status to penicillin; Z88.1 Allergy status to other antibiotic agents; Z88.8 Allergy status to other drugs, medicaments and biological substances

== ENCOUNTER → 2022-05-14 | Outpatient (CLI) | payer MEDICARE, BC, OTHER ==
[2022-05-14 11:49] LABS: HEMATOCRIT 37.6 % (42.0-52.0); MEAN CORPUSCULAR HEMOGLOBIN 30.6 pg (27.0-33.0); MEAN CORPUSCULAR HGB CONC 31.9 g/dl (32.0-36.5); MEAN CORPUSCULAR VOLUME 95.9 fl (80.0-96.0); PLATELET COUNT, AUTOMATED 424 10^3/uL (150-450); RED BLOOD COUNT 3.92 10^6/uL (4.30-6.10); WHITE BLOOD COUNT 29.5 10^3/uL (4.0-10.0)
[2022-05-14 12:13] LABS: ALBUMIN 1.6 G/DL (3.2-5.2)
[2022-05-14 12:20] LABS: BILIRUBIN,DIRECT 0.2 MG/DL (<0.4); BILIRUBIN,TOTAL 0.4 MG/DL (0.3-1.2)
[2022-05-14 13:01] LABS: ATYPICAL LYMPH 6 % (0-5); EOSINOPHILS 2 % (0-3); LYMPHOCYTES 6 % (16-44); METAMYELOCYTES 2 % (0-0); MONOCYTES 4 % (0-5); NEUTROPHILS 77 % (28-66)
[2022-05-14 13:03] LABS: PLATELET ESTIMATE NORMAL (NORMAL)
[2022-05-14 18:16] LABS: TOTAL PROTEIN 5.8 G/DL (5.7-8.2)
== END ==
LOC: M LAB 11:08
PROVIDERS: ATTEND Physician Assistant
DX: B34.9 Viral infection, unspecified (principal)

== ENCOUNTER → 2022-06-10 | Outpatient (CLI) | payer MEDICARE, BC, OTHER ==
[~2022-06-10] MED LIST changes: +ASPI81CH33 PO; +LIDOCAINE 1% MDV 20ML VIAL As Ordered ONE; +LOSA100T5; +NAPR220C23 PO
[2022-06-10 08:24] LABS: BASO % 0.4 % (0.0-1.0); EOS # 0.2 10^3/uL (0.0-0.5); EOS % 2.3 % (0.0-3.0); HEMATOCRIT 28.7 % (42.0-52.0); HEMOGLOBIN 8.9 g/dl (13.5-17.5); LYMPH # 1.3 10^3/uL (1.5-5.0); LYMPH % 13.2 % (24.0-44.0); MEAN CORPUSCULAR HEMOGLOBIN 29.3 pg (27.0-33.0); MEAN CORPUSCULAR VOLUME 94.4 fl (80.0-96.0); MONO # 1.4 10^3/uL (0.0-0.8); NEUTROPHILS # 6.7 10^3/uL (1.5-8.5); NEUTROPHILS % 69.6 % (36.0-66.0); PLATELET COUNT, AUTOMATED 490 10^3/uL (150-450); RED BLOOD COUNT 3.04 10^6/uL (4.30-6.10); WHITE BLOOD COUNT 9.6 10^3/uL (4.0-10.0)
[2022-06-10 09:25] VITALS: BP 123/57
== END ==
LOC: M IRPRO 07:35
PROVIDERS: ATTEND Specialist
DX: D72.829 Elevated white blood cell count, unspecified (principal)

== ENCOUNTER → 2022-06-23 | Outpatient (CLI) | payer MEDICARE, BC, OTHER ==
[~2022-06-23] MED LIST changes: -LIDOCAINE 1% MDV 20ML VIAL As Ordered ONE
== END ==
LOC: M PLARAD 12:38
PROVIDERS: ATTEND Internal Medicine Hematology & Oncology
DX: R93.5 Abnormal findings on diagnostic imaging of other abdominal regions, including retroperitoneum (principal)
CPT/HCPCS: 78815; A9552

== ENCOUNTER → 2022-07-24 | Outpatient (REF) | payer MEDICARE, BC, OTHER ==
[2022-07-24 17:20] LABS: PERCENT SATURATION 10.3 % (19.7-50.0)
[2022-07-24 17:22] LABS: FERRITIN 413.7 NG/ML (10.5-307.3)
== END ==
LOC: M LAB REF 16:16
PROVIDERS: ATTEND Internal Medicine
DX: D64.9 Anemia, unspecified (principal)

== ENCOUNTER → 2023-04-22 | Outpatient (CLI) | payer MEDICARE, BC, OTHER | LOC: M WHC 09:28 | PROVIDERS: ATTEND Internal Medicine | DX: N62 Hypertrophy of breast (principal) | CPT/HCPCS: 77066; G0279 ==

== ENCOUNTER → 2023-06-12 | Outpatient (CLI) | payer MEDICARE, BC, OTHER ==
[~2023-06-12] MED LIST changes: +MULT18TA PO; -ONE-1TAB PO
== END ==
LOC: M RAD 13:45
PROVIDERS: ATTEND Physician Assistant
DX: R06.02 Shortness of breath (principal)

== ENCOUNTER → 2023-09-01 | Outpatient (CLI) | payer MEDICARE, BC, OTHER ==
[~2023-09-01] MED LIST changes: +CVS1CAP2 PO; +E-Z-GAS II EFFERVESCENT PACKET (SODIUM BICARB./CITRIC ACID/SIMETHICONE) As Ordered ONE; +E-Z-HD 98% w/w 340GM SUSP BTL As Ordered ONE; +E-Z-PAQUE 96% w/w SUSP 176GM BTL As Ordered ONE; +FAMO40TA3 PO; +FLUTISP
== END ==
LOC: M RAD 09:26
PROVIDERS: ATTEND Surgery
DX: K21.9 Gastro-esophageal reflux disease without esophagitis (principal); R93.3 Abnormal findings on diagnostic imaging of other parts of digestive tract

== ENCOUNTER → 2023-10-06 | Outpatient (CLI) | payer MEDICARE, BC, OTHER ==
[~2023-10-06] MED LIST changes: -E-Z-GAS II EFFERVESCENT PACKET (SODIUM BICARB./CITRIC ACID/SIMETHICONE) As Ordered ONE; -E-Z-HD 98% w/w 340GM SUSP BTL As Ordered ONE; -E-Z-PAQUE 96% w/w SUSP 176GM BTL As Ordered ONE
[2023-10-06 08:34] LABS: BASO % 0.3 % (0.0-1.0); EOS # 0.3 10^3/uL (0.0-0.5); EOS % 2.5 % (0.0-3.0); HEMATOCRIT 38.3 % (42.0-52.0); HEMOGLOBIN 12.5 g/dl (13.5-17.5); LYMPH # 1.3 10^3/uL (1.5-5.0); LYMPH % 13.1 % (24.0-44.0); MEAN CORPUSCULAR HEMOGLOBIN 32.3 pg (27.0-33.0); MEAN CORPUSCULAR HGB CONC 32.6 g/dl (32.0-36.5); MONO % 10.3 % (2.0-8.0); NEUTROPHILS # 7.4 10^3/uL (1.5-8.5); NEUTROPHILS % 73.2 % (36.0-66.0); PLATELET COUNT, AUTOMATED 288 10^3/uL (150-450); RED BLOOD COUNT 3.87 10^6/uL (4.30-6.10); WHITE BLOOD COUNT 10.1 10^3/uL (4.0-10.0)
[2023-10-06 08:58] LABS: ALBUMIN 3.4 G/DL (3.2-5.2); BILIRUBIN,TOTAL 0.5 MG/DL (0.3-1.2); CHOLESTEROL RISK RATIO 3.36 (<5); CREATININE FOR GFR 1.3 MG/DL (0.70-1.30); GLOMERULAR FILTRATION RATE 56.7 (>42); HDL CHOLESTEROL 35.4 MG/DL (>40); NON-HDL-C 83.6 MG/DL; POTASSIUM SERUM 4.2 MMOL/L (3.5-5.1); TOTAL PROTEIN 6.7 G/DL (5.7-8.2)
[2023-10-06 09:00] LABS: FREE T4 1.11 NG/DL (0.89-1.76); THYROID STIMULATING HORMONE 3.535 uIU/ML (0.55-4.78)
== END ==
LOC: M LAB 07:52
PROVIDERS: ATTEND Internal Medicine Interventional Cardiology
DX: I25.10 Atherosclerotic heart disease of native coronary artery without angina pectoris (principal); I48.0 Paroxysmal atrial fibrillation; I11.0 Hypertensive heart disease with heart failure; I50.9 Heart failure, unspecified

== ENCOUNTER 2023-10-10 00:29 | Emergency (ER) | payer MEDICARE, BC, OTHER ==
[~2023-10-10] VITALS: Ht 185.4 cm; Wt 94.4 kg
[2023-10-10 01:00] LABS: BASO % 0.4 % (0.0-1.0); EOS # 0.2 10^3/uL (0.0-0.5); EOS % 2.3 % (0.0-3.0); HEMATOCRIT 37.7 % (42.0-52.0); HEMOGLOBIN 12.4 g/dl (13.5-17.5); LYMPH # 1.9 10^3/uL (1.5-5.0); LYMPH % 18.3 % (24.0-44.0); MEAN CORPUSCULAR HGB CONC 32.9 g/dl (32.0-36.5); MEAN CORPUSCULAR VOLUME 97.4 fl (80.0-96.0); MONO # 1.2 10^3/uL (0.0-0.8); MONO % 11.4 % (2.0-8.0); NEUTROPHILS # 6.9 10^3/uL (1.5-8.5); NEUTROPHILS % 67.1 % (36.0-66.0); PLATELET COUNT, AUTOMATED 284 10^3/uL (150-450); RED BLOOD COUNT 3.87 10^6/uL (4.30-6.10); WHITE BLOOD COUNT 10.2 10^3/uL (4.0-10.0)
[2023-10-10 01:25] LABS: CK-MB VALUE MASS 1.4 NG/ML (<3.6); LIPASE 59 U/L (12-53)
[2023-10-10 01:27] LABS: CPK CREATINE PHOSPHOKINASE 67 U/L (46-171); MB/CK RELATIVE INDEX 2.08 (< OR =4)
[2023-10-10 01:28] LABS: ALBUMIN 3.5 G/DL (3.2-5.2); ALKALINE PHOSPHATASE 106 U/L (46-116); ALT/SGPT 12 U/L (7.0-40); AST/SGOT 11 U/L (<34); BILIRUBIN,DIRECT 0.1 MG/DL (<0.4); BILIRUBIN,TOTAL 0.4 MG/DL (0.3-1.2); BLOOD UREA NITROGEN 15 MG/DL (9-23); CALCIUM LEVEL 8.9 MG/DL (8.3-10.6); CARBON DIOXIDE LEVEL 29 MMOL/L (20-31); CHLORIDE LEVEL 105 MMOL/L (98-107); CREATININE FOR GFR 1.11 MG/DL (0.70-1.30); GLOMERULAR FILTRATION RATE > 60.0 (>42); GLUCOSE, FASTING 102 MG/DL (74-106); POTASSIUM SERUM 4.2 MMOL/L (3.5-5.1); SODIUM LEVEL 139 MMOL/L (136-145); TOTAL PROTEIN 7.1 G/DL (5.7-8.2)
[2023-10-10] MEDS: SUCRALFATE 1 GM TAB PO ONE (02:12)
[2023-10-10] MEDS: PANTOPRAZOLE 40MG VIAL IV ONE (02:12)
[2023-10-10] MEDS: NS 500 ML IV ONE (03:12)
[2023-10-10 03:17] LABS: CK-MB VALUE MASS 1.6 NG/ML (<3.6)
[2023-10-10 03:18] LABS: MB/CK RELATIVE INDEX 2.66 (< OR =4)
[2023-10-10] MEDS ORDERED: CARA1TAB6 PO (03:59)
[2023-10-10 04:37] VITALS: BP 125/78; TEMP 97.3; O2SAT 95
== END 2023-10-10 04:38 | disposition home or self-care (01) ==
LOC: M ED 00:29
DX: K21.9 Gastro-esophageal reflux disease without esophagitis (principal); R00.1 Bradycardia, unspecified; I45.81 Long QT syndrome; I25.119 Atherosclerotic heart disease of native coronary artery with unspecified angina pectoris; E78.5 Hyperlipidemia, unspecified; Z88.0 Allergy status to penicillin; Z88.1 Allergy status to other antibiotic agents; Z88.8 Allergy status to other drugs, medicaments and biological substances; Z91.041 Radiographic dye allergy status; Z79.1 Long term (current) use of non-steroidal anti-inflammatories (NSAID); Z79.810 Long term (current) use of selective estrogen receptor modulators (SERMs); Z79.899 Other long term (current) drug therapy
CPT/HCPCS: 71045; 80048; 80076; 82550; 82553; 83690; 84484; 85025; 85730; 93005; 93041; 94760; 96361; 96374; 99285; J2470

== ENCOUNTER 2023-12-09 11:20 | Day surgery (SDC) | payer MEDICARE, BC, OTHER ==
[~2023-12-09] VITALS: Ht 185.4 cm; Wt 90.5 kg
[2023-12-09] MEDS: DUOVISC (0.50ML VISCOAT/0.85ML PROVISC) OPHTH KIT As Ordered ONE (06:57)
[~2023-12-09 11:20] MED LIST changes: +CARA1TAB6 PO; +COQ150CH PO; +ESOM40CA35 PO; +LOSA50TA5 PO; +PHENYLEPHRINE 10% OPHTH SOL 5ML OD PRN; +REFR1DRO8 OU; +SUCR1TAB56 PO; +THERTAB52 PO; +eye health complex PO; +fentaNYL 100 MCG/2 ML INJECTION As Ordered ONE
[2023-12-09] MEDS: UNRESOLVED CLARIFICATION ENTRY XX ONE (12:04)
[2023-12-09] MEDS: LIDOCAINE 3.5 % 1ML OPHTH TOPICAL GEL OU ONE (12:04)
[2023-12-09] MEDS: PHENYLEPHRINE 2.5% OPHTH SOL 2ML OD SCH (12:05)
[2023-12-09] MEDS: ATROPINE SULFATE 1% OPHTH SOLN 2ML BTL OD SCH (12:05)
[2023-12-09] MEDS: TROPICAMIDE 1% OPHTH SOLN 15ML OD SCH (12:05)
[2023-12-09] MEDS: MOXIFLOXACIN 0.6MG/0.4ML INTRAOCULAR SYRINGE As Ordered ONE (12:49)
[2023-12-09] MEDS: LIDOCAINE 1% SDV 5ML VIAL As Ordered ONE (12:49)
[2023-12-09] MEDS: CEFUROXIME 1MG/0.1ML INTRACAMERAL INJ As Ordered ONE (12:50)
[2023-12-09] MEDS: BSS IRRIG/VANCO(10MG)/TOBRA(5MG)/EPINEPH(1:1000-0.5CC)500ML BAG-ORONLY As Ordered ONE (12:50)
[2023-12-09 13:00] VITALS: BP 166/70; TEMP 97; O2SAT 95
== END 2023-12-09 13:18 | disposition home or self-care (01) ==
LOC: M SDC 11:20
PROVIDERS: ATTEND Ophthalmology
DX: H25.11 Age-related nuclear cataract, right eye (principal); I48.91 Unspecified atrial fibrillation; I10 Essential (primary) hypertension; I25.10 Atherosclerotic heart disease of native coronary artery without angina pectoris; J44.9 Chronic obstructive pulmonary disease, unspecified; Z79.82 Long term (current) use of aspirin; Z79.899 Other long term (current) drug therapy; E78.00 Pure hypercholesterolemia, unspecified; K21.9 Gastro-esophageal reflux disease without esophagitis; Z95.5 Presence of coronary angioplasty implant and graft; Z95.1 Presence of aortocoronary bypass graft; Z87.891 Personal history of nicotine dependence; Z90.49 Acquired absence of other specified parts of digestive tract; Z88.0 Allergy status to penicillin; Z88.1 Allergy status to other antibiotic agents; Z88.8 Allergy status to other drugs, medicaments and biological substances; Z91.041 Radiographic dye allergy status
CPT/HCPCS: 66984; J3010; V2632

== ENCOUNTER 2023-12-16 10:44 | Day surgery (SDC) | payer MEDICARE, BC, OTHER ==
[~2023-12-16] VITALS: Ht 185.4 cm; Wt 90.7 kg
[~2023-12-16 10:44] MED LIST changes: -PHENYLEPHRINE 10% OPHTH SOL 5ML OD PRN; +PHENYLEPHRINE 10% OPHTH SOL 5ML OS PRN; -fentaNYL 100 MCG/2 ML INJECTION As Ordered ONE
[2023-12-16] MEDS ORDERED: MIDAZOLAM INJ 2MG/2ML VIAL As Ordered ONE (10:47)
[2023-12-16] MEDS: LIDOCAINE 3.5 % 1ML OPHTH TOPICAL GEL OU ONE (11:36)
[2023-12-16] MEDS: OFLOXACIN 0.3 % (OCUFLOX) OPTH SOL 5ML OS ONE (11:36)
[2023-12-16] MEDS: ATROPINE SULFATE 1% OPHTH SOLN 2ML BTL OS SCH (11:36)
[2023-12-16] MEDS: PHENYLEPHRINE 2.5% OPHTH SOL 2ML OS SCH (11:36)
[2023-12-16] MEDS: TROPICAMIDE 1% OPHTH SOLN 15ML OS SCH (11:36)
[2023-12-16] MEDS: CEFUROXIME 1MG/0.1ML INTRACAMERAL INJ As Ordered ONE (12:18)
[2023-12-16] MEDS: LIDOCAINE 1% SDV 5ML VIAL As Ordered ONE (12:18)
[2023-12-16] MEDS: BSS IRRIG/VANCO(10MG)/TOBRA(5MG)/EPINEPH(1:1000-0.5CC)500ML BAG-ORONLY As Ordered ONE (12:18)
[2023-12-16 12:27] VITALS: BP 134/62; TEMP 97.3; O2SAT 97
== END 2023-12-16 12:47 | disposition home or self-care (01) ==
LOC: M SDC 10:44
PROVIDERS: ATTEND Ophthalmology
DX: H25.12 Age-related nuclear cataract, left eye (principal); I48.91 Unspecified atrial fibrillation; Z95.5 Presence of coronary angioplasty implant and graft; R07.9 Chest pain, unspecified; I25.10 Atherosclerotic heart disease of native coronary artery without angina pectoris; Z98.41 Cataract extraction status, right eye; Z88.0 Allergy status to penicillin; Z88.1 Allergy status to other antibiotic agents; Z88.8 Allergy status to other drugs, medicaments and biological substances; Z91.041 Radiographic dye allergy status; Z79.899 Other long term (current) drug therapy
CPT/HCPCS: 66984; J0697; J2250; V2632

== ENCOUNTER 2023-12-24 08:23 | Day surgery (SDC) | payer MEDICARE, BC, OTHER ==
[~2023-12-24] VITALS: Ht 185.4 cm; Wt 90.7 kg
[~2023-12-24 08:23] MED LIST changes: +NS 1,000 ML IV ONE; -PHENYLEPHRINE 10% OPHTH SOL 5ML OS PRN
[2023-12-24] MEDS ORDERED: propofoL 200 MG/20 ML VIAL As Ordered ONE (08:49)
[2023-12-24] MEDS ORDERED: GLYCOPYRROLATE INJ 0.2 MG/ML 2 ML VIAL As Ordered ONE (08:49)
[2023-12-24 10:41] VITALS: TEMP 98.3
[2023-12-24 10:58] VITALS: BP 116/55; O2SAT 95
== END 2023-12-24 11:02 | disposition home or self-care (01) ==
LOC: M OPP 08:23
PROVIDERS: ATTEND Surgery
DX: K29.50 Unspecified chronic gastritis without bleeding (principal); K44.9 Diaphragmatic hernia without obstruction or gangrene; I48.91 Unspecified atrial fibrillation; I25.10 Atherosclerotic heart disease of native coronary artery without angina pectoris; I10 Essential (primary) hypertension; E78.00 Pure hypercholesterolemia, unspecified; J44.9 Chronic obstructive pulmonary disease, unspecified; Z95.1 Presence of aortocoronary bypass graft; Z79.899 Other long term (current) drug therapy; Z79.82 Long term (current) use of aspirin; Z88.2 Allergy status to sulfonamides; Z88.8 Allergy status to other drugs, medicaments and biological substances; Z88.1 Allergy status to other antibiotic agents; Z91.041 Radiographic dye allergy status
CPT/HCPCS: 43239; 88305; J1596

== ENCOUNTER → 2024-10-10 | Outpatient (CLI) | payer MEDICARE, BC, OTHER ==
[~2024-10-10] MED LIST changes: -NS 1,000 ML IV ONE
== END ==
LOC: M RAD 11:22
PROVIDERS: ATTEND Internal Medicine
DX: I65.23 Occlusion and stenosis of bilateral carotid arteries (principal)

== ENCOUNTER 2024-11-03 13:50 | Emergency (ER) | payer MEDICARE, BC, OTHER ==
[~2024-11-03] VITALS: Ht 185.4 cm; Wt 93.6 kg
[2024-11-03] MEDS: ACETAMINOPHEN 325 MG TAB PO ONE (15:19)
[2024-11-03 15:38] LABS: BASO # 0.0 10^3/uL (0.0-0.2); BASO % 0.3 % (0.0-1.0); EOS # 0.2 10^3/uL (0.0-0.5); EOS % 2.1 % (0.0-3.0); LYMPH # 0.5 10^3/uL (1.5-5.0); LYMPH % 5.3 % (24.0-44.0); MONO # 1.1 10^3/uL (0.0-0.8); MONO % 11.6 % (2.0-8.0); NEUTROPHILS # 7.6 10^3/uL (1.5-8.5); NEUTROPHILS % 80.2 % (36.0-66.0); PLATELET COUNT, AUTOMATED 284 10^3/uL (150-450)
[2024-11-03 15:41] LABS: KETONE, URINE AUTO RFX NEGATIVE (NEGATIVE); LEUKOCYTE ESTERASE UR AUTO RFX NEGATIVE (NEGATIVE); MUCUS, URINE RFX SMALL (NEGATIVE); NITRITE, URINE AUTO RFX NEGATIVE (NEGATIVE); RBC, URINE AUTO RFX 0 /HPF (0-3); SQUAM EPITHELIAL CELL UR AURFX 0 /HPF (0-6); WBC, URINE AUTO RFX 0 /HPF (0-3)
[2024-11-03 15:55] LABS: ALT/SGPT 15.0 U/L (7.0-40); AST/SGOT 23.0 U/L (<34); CALCIUM LEVEL 8.7 MG/DL (8.3-10.6); CARBON DIOXIDE LEVEL 30.0 MMOL/L (20-31); CHLORIDE LEVEL 100.0 MMOL/L (98-107); CREATININE FOR GFR 1.15 MG/DL (0.70-1.30); GLOMERULAR FILTRATION RATE 64.3 (>35); POTASSIUM SERUM 4.4 MMOL/L (3.5-5.1); SODIUM LEVEL 139.0 MMOL/L (136-145)
[2024-11-03] MEDS ORDERED: NIRM1TAB14 PO (17:06)
[2024-11-03 17:15] VITALS: BP 137/61; TEMP 99; O2SAT 95
== END 2024-11-03 17:28 | disposition home or self-care (01) ==
LOC: M ED 13:50
DX: U07.1 COVID-19 (principal); I25.119 Atherosclerotic heart disease of native coronary artery with unspecified angina pectoris; Z88.0 Allergy status to penicillin; Z88.1 Allergy status to other antibiotic agents; Z88.8 Allergy status to other drugs, medicaments and biological substances; Z88.6 Allergy status to analgesic agent; Z79.1 Long term (current) use of non-steroidal anti-inflammatories (NSAID); Z79.899 Other long term (current) drug therapy; Z79.810 Long term (current) use of selective estrogen receptor modulators (SERMs)